=== PATIENT | female | born 1985 | race Caucasian/White ===

== ENCOUNTER 2020-03-30 15:22 | Emergency (ER) | payer SELFPAY ==
[~2020-03-30] VITALS: Ht 170.2 cm; Wt 52.8 kg
[2020-03-30 15:35] VITALS: BP 112/79
--- NOTE | 2020-03-30 15:50 | NUR ---
PT AMB TO BED 2.
--- NOTE | 2020-03-30 16:24 | NUR ---
34YO F BIB SELF C/O LOWER ABDOMINAL PAIN X 1 DAY. PAIN 6/10, CRAMPING, RADIATING TO LOWER BACK. PT ALSO WITH VAGINAL SPOTTING AND BLURRY VISION. NO N/V. DENIES ANY URINARY SYMPTOMS. IN ER, VSS. PT RESTING IN BED COMFORTABLY. ERMD MADE AWARE OF PT STATUS. LMP: 02/03/20 PMH: NONE MEDS: NONE
[2020-03-30 16:31] LABS: BASOPHILS % (AUTO) 0.3 % (0.0-2.0); EOSINOPHILS # (AUTO) 0.2 K/uL (0-0.4); EOSINOPHILS % (AUTO) 2.1 % (0.0-4.0); HEMATOCRIT 37.8 % (36-48); HEMOGLOBIN 12.8 g/dL (12.0-16.0); LYMPHOCYTES # (AUTO) 1.3 K/uL (2.5-16.5); LYMPHOCYTES % (AUTO) 17.5 % (20.5-51.1); MEAN CORPUSCULAR HEMOGLOBIN 31 pg (27-31); MEAN CORPUSCULAR HGB CONC 34 g/dL (33-37); MEAN CORPUSCULAR VOLUME 92.3 fL (80-94); MONOCYTES # (AUTO) 0.6 K/uL (0.8-1.0); NEUTROPHILS # (AUTO) 5.4 K/uL (1.8-7.7); NEUTROPHILS % (AUTO) 72.1 % (42.2-75.2); PLATELET COUNT (AUTO) 209 K/uL (140-450); RED BLOOD CELL COUNT(AUTO) 4.09 MIL/uL (4.20-5.40); WHITE BLOOD COUNT (AUTO) 7.5 K/uL (4.8-10.8)
[2020-03-30 18:10] VITALS: BP 121/77
--- NOTE | 2020-03-30 18:10 | NUR ---
Patient discharged with v/s stable. Written and verbal after care instructions given and explained. Patient verbalized understanding. Ambulatory with steady gait. All questions addressed prior to discharge. Advised to follow up with PMD.
== END 2020-03-30 18:10 | disposition home or self-care (01) ==
LOC: MED 15:22
DX: N93.9 Abnormal uterine and vaginal bleeding, unspecified (principal); Z88.6 Allergy status to analgesic agent; Z91.018 Allergy to other foods; Z98.890 Other specified postprocedural states
CPT/HCPCS: 36415; 76801; 84702; 85025; 86900; 86901; 99284